=== PATIENT | female | born 1970 | race Native Hawaiian/Other Pacific Islander ===

== ENCOUNTER → 2016-03-11 | Outpatient (REF) | payer BC ==
[~2016-03-11] MED LIST: AMLO5TAB2 PO; NORC7.5T PO; PROA1AER INH
== END ==
LOC: M LAB REF 12:44
PROVIDERS: ATTEND Internal Medicine Medical Oncology
DX: C18.9 Malignant neoplasm of colon, unspecified (principal)

== ENCOUNTER → 2016-05-09 | Outpatient (CLI) | payer BC | LOC: M SMT 15:04 | PROVIDERS: ATTEND Family Medicine | DX: E55.9 Vitamin D deficiency, unspecified (principal) ==

== ENCOUNTER → 2016-05-09 | Outpatient (CLI) | payer BC ==
[2016-05-09 22:07] LABS: FREE T4 1.58 NG/DL (0.76-1.46)
== END ==
LOC: M SMT 15:02
PROVIDERS: ATTEND Physician Assistant Medical
DX: E03.9 Hypothyroidism, unspecified (principal)

== ENCOUNTER → 2016-05-21 | Outpatient (CLI) | payer BC ==
--- NOTE | 2016-05-22 08:00 | RADONC ---
RADIATION ONCOLOGY FOLLOWUP NOTE DATE: 05/21/2016 CHART NUMBER: [id number]. DIAGNOSIS: Rectosigmoid cancer. STAGE: IIIB, [id number]. ECOG PERFORMANCE STATUS: 0. FOLLOWUP NOTE: Ms. 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 The patient presents today reporting that she is doing quite well with no complaints at this time related to her radiation therapy disease. She has no urinary or bowel difficulties. No bone pain. REVIEW OF SYSTEMS: The patient's review of systems is noncontributory. Denies nausea, vomiting, fevers, chills, night sweats, diplopia, headaches, anxiety or depression, anorexia, weight loss, visual disturbances, chest pain, urinary or bowel difficulties, bone pain, or neurological problems. PHYSICAL EXAMINATION: The patient is a well-developed, well-nourished, 46-year-old white female in no acute distress. HEENT exam is normocephalic, atraumatic. Extraocular movements are intact. There is no palpable cervical, supraclavicular, infraclavicular, axillary, or inguinal lymphadenopathy present. Lungs are clear to auscultation and percussion. Heart has a regular rate and rhythm. Abdomen is benign with no hepatosplenomegaly, masses, or tenderness. Skeletal examination reveals no tenderness to pressure or percussion of the bony skeleton. Extremities reveal no clubbing, cyanosis, or edema. Neurologic exam is grossly intact, as is the remainder of the physical examination. Rectal examination reveals a normal anal sphincter tone. There is no evidence of nodularity, ulceration or recurrent disease. ASSESSMENT: The patient is clinically SAUNDRA at this time and will be seen by us again in 6 months for further followup. She will also continue to be followed by her other physicians as well. The patient tells me that she is seeing Dr. Mars in [address] Mars has ordered a PET scan for her. cc: MD Ian Felton MD *Nikole Brooke,
== END ==
LOC: M ONCR 09:59
PROVIDERS: ATTEND Radiology Radiation Oncology
DX: C21.8 Malignant neoplasm of overlapping sites of rectum, anus and anal canal (principal)

== ENCOUNTER → 2016-06-10 | Outpatient (REF) | payer BC | LOC: M LAB REF 13:26 | PROVIDERS: ATTEND Internal Medicine Medical Oncology | DX: C20 Malignant neoplasm of rectum (principal) ==

== ENCOUNTER → 2016-06-11 | Outpatient (REF) | payer BC | LOC: M SFHCPLAZ 13:30 | PROVIDERS: ATTEND Dermatology | DX: L25.9 Unspecified contact dermatitis, unspecified cause (principal) ==

== ENCOUNTER → 2016-06-18 | Outpatient (CLI) | payer BC ==
--- NOTE | 2016-06-19 09:44 | REP ---
PET/CT: HISTORY: Restaging rectal carcinoma. Rising tumor markers. The patient status post low anterior resection and chemotherapy. The patient is apparently status post radiation therapy as well. COMPARISON: Comparison PET/CT study September 13, 2015. TECHNIQUE: 53 minutes following the intravenous injection of a 11.0 mCi dose of F-18 FDG, three-dimensional PET scintigraphy is acquired from the skull base to the proximal thighs. Triplanar noncontrast CT scanning is acquired through the same anatomic range for attenuation correction, and image registration with scan parameters optimized to minimize radiation exposure to the patient. PET scintigraphy and CT datasets were fused and displayed on a workstation with multiplanar and projection display capability. PET/CT FINDINGS: Bilateral and fairly diffuse uptake in the thyroid lobes is again seen. The right thyroid lobe is larger than the left as before. Maximum standard uptake value in the right lobe is 7.7 and in the left 3.6. These findings are unchanged and most compatible with thyroiditis. Head and neck uptake is otherwise unremarkable. There is non-hypermetabolic uptake in two adjacent right axillary lymph nodes which are well under a centimeter. This is essentially unchanged as well. There is evidence of cholelithiasis again noted. Uptake in the abdomen and pelvis is unremarkable. There is no evidence of hypermetabolic focus in the abdomen or pelvis. Postoperative changes are seen status post low anterior resection. Normal appendix. IMPRESSION: No new abnormal hypermetabolic uptake. Diffuse increased uptake throughout both lobes of the thyroid gland again seen compatible with thyroiditis. Signed by Devin Augusitne MD 06/19/2016 12:39 P
== END ==
LOC: M RAD 15:24
PROVIDERS: ATTEND Internal Medicine Medical Oncology
DX: C20 Malignant neoplasm of rectum (principal); Z92.21 Personal history of antineoplastic chemotherapy; R59.1 Generalized enlarged lymph nodes
CPT/HCPCS: 78815; A9552

== ENCOUNTER 2016-07-08 06:56 | Emergency (ER) | payer BC ==
[~2016-07-08] VITALS: Ht 157.5 cm; Wt 65.8 kg
[2016-07-08] MEDS ORDERED: PREM0.6254 (07:19)
[2016-07-08] MEDS ORDERED: VITA50003 (07:19)
[2016-07-08] MEDS ORDERED: LEVO112T2 PO (07:19)
[2016-07-08] MEDS: NS 1,000 ML IV SCH ×3 (07:45→13:29)
[2016-07-08 07:52] LABS: BASO # 0.1 K/mm3 (0.0-0.2); BASO % 1.2 % (0.0-1.0); EOS # 0.3 K/mm3 (0.0-0.50); EOS % 5.5 % (0.0-3.0); LARGE UNSTAINED CELL # 0.1 K/mm3 (0.0-0.4); LARGE UNSTAINED CELL % 1.8 % (0.0-4.0); LYMPH # 1.3 K/mm3 (1.5-4.5); LYMPH % 19.9 % (24.0-44.0); MEAN CORPUSCULAR HEMOGLOBIN 30.3 pg (27.0-33.0); MEAN CORPUSCULAR HGB CONC 33.6 g/dl (32.0-36.5); MEAN CORPUSCULAR VOLUME 90.4 fl (80.0-96.0); MONO # 0.4 K/mm3 (0.0-0.8); MONO % 6.3 % (0.0-5.0); NEUTROPHILS # 3.8 K/mm3 (1.8-7.7); NEUTROPHILS % 65.2 % (36.0-66.0); PLATELET COUNT, AUTOMATED 347 k/mm3 (150-450); RED CELL DISTRIBUTION WIDTH 12.4 % (11.5-14.5); WHITE BLOOD COUNT 5.8 K/mm3 (4.0-10.0)
--- NOTE | 2016-07-08 08:14 | REP ---
Clinical: Chest pain . Comparison: 05/24/2014 . Findings: The mediastinum and cardiac silhouette are stable and within normal limits for portable technique. The lung olivera are clear without acute consolidation, effusion, or pneumothorax. Skeletal structures are intact. Impression: Normal portable chest x-ray Signed by Neftaly Spence MD 07/08/2016 08:05 A
[2016-07-08 08:15] LABS: ALBUMIN 3.7 GM/DL (3.2-5.2); ALBUMIN/GLOBULIN RATIO 0.93 (1.00-1.93); ALKALINE PHOSPHATASE 84 U/L (45-117); ALT/SGPT 28 U/L (12-78); ANION GAP 11 MEQ/L (8-16); AST/SGOT 20 U/L (15-37); BILIRUBIN,DIRECT 0.2 MG/DL (0.0-0.2); BILIRUBIN,TOTAL 0.8 MG/DL (0.2-1.0); BLOOD UREA NITROGEN 13 MG/DL (7-18); CALCIUM LEVEL 8.7 MG/DL (8.5-10.1); CARBON DIOXIDE LEVEL 24 MEQ/L (21-32); CHLORIDE LEVEL 106 MEQ/L (98-107); CREATININE FOR GFR 0.92 MG/DL (0.55-1.02); GLOMERULAR FILTRATION RATE > 60.0 (>58); GLUCOSE, FASTING 123 MG/DL (70-105); POTASSIUM SERUM 3.4 MEQ/L (3.5-5.1); SODIUM LEVEL 141 MEQ/L (136-145); TOTAL PROTEIN 7.7 GM/DL (6.4-8.2)
[2016-07-08] MEDS ORDERED: MORPHINE 4 MG/ML 1ML SYRINGE IV ONE ×2 (08:30→10:45)
[2016-07-08] MEDS ORDERED: ONDANSETRON 4MG/2ML VIAL (J2405) IV ONE (08:30)
[2016-07-08] MEDS ORDERED: ISOVUE-370 76% 100ML VIAL (Q9967) As Ordered ONE (11:11)
--- NOTE | 2016-07-08 11:59 | REP ---
CT ANGIOGRAM CHEST: TECHNIQUE: Axial contrast enhanced images from the thoracic inlet to the upper abdomen using 100 mL Isovue 370 intravenous contrast material with multiplanar reformations. The lungs show no evidence of infiltrate or other abnormal lung opacities. There is no CT evidence of pulmonary embolism. There is no evidence of thoracic aortic aneurysm or dissection. No adenopathy is seen in the mediastinal or hilar regions. The heart is normal in size. There is no pleural or pericardial effusion. The visualized upper abdominal structures appear unremarkable. IMPRESSION: No CT evidence of pulmonary embolism. Signed by Nixon Verma MD 07/08/2016 04:08 P
[2016-07-08] MEDS ORDERED: HEPARIN DRIP 25,000 UNITS in APPROPRIATE DILUENT 1 EA IV SCH (12:08)
[2016-07-08] MEDS ORDERED: HEPARIN SOD (PORCINE) 5000 UNITS/ML VIAL IV ONE (12:15)
[2016-07-08 13:12] VITALS: BP 168/92
--- NOTE | 2016-07-08 15:09 | ECGEPIP ---
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
--- NOTE | 2016-07-08 15:13 | ECGEPIP ---
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
== END 2016-07-08 13:29 | disposition short-term general hospital (02) ==
LOC: M ED 08:15
DX: R07.9 Chest pain, unspecified (principal); R74.8 Abnormal levels of other serum enzymes; Z85.038 Personal history of other malignant neoplasm of large intestine
CPT/HCPCS: 71010; 71275; 80048; 80076; 82550; 82553; 83690; 83880; 85025; 85379; 93005; 93041; 94760; 96374; 96375; 96376; 99285; J2405; Q9967

== ENCOUNTER → 2016-07-16 | Outpatient (CLI) | payer BC ==
[~2016-07-16] MED LIST changes: +LEVO112T2 PO; +PREM0.6254; +VITA50003
[2016-07-16 17:56] LABS: ALBUMIN 4.5 GM/DL (3.2-5.2); ALBUMIN/GLOBULIN RATIO 1.05 (1.00-1.93); ALKALINE PHOSPHATASE 98 U/L (45-117); ALT/SGPT 34 U/L (12-78); ANION GAP 10 MEQ/L (8-16); AST/SGOT 16 U/L (15-37); BILIRUBIN,TOTAL 1.7 MG/DL (0.2-1.0); BLOOD UREA NITROGEN 20 MG/DL (7-18); CALCIUM LEVEL 9.6 MG/DL (8.5-10.1); CARBON DIOXIDE LEVEL 23 MEQ/L (21-32); CHLORIDE LEVEL 108 MEQ/L (98-107); CREATININE FOR GFR 1.06 MG/DL (0.55-1.02); GLUCOSE, FASTING 93 MG/DL (70-105); POTASSIUM SERUM 4.9 MEQ/L (3.5-5.1); SODIUM LEVEL 141 MEQ/L (136-145); TOTAL PROTEIN 8.8 GM/DL (6.4-8.2)
[2016-07-16 18:08] LABS: MEAN CORPUSCULAR HEMOGLOBIN 31.3 pg (27.0-33.0); MEAN CORPUSCULAR HGB CONC 32.5 g/dl (32.0-36.5); MEAN CORPUSCULAR VOLUME 96.1 fl (80.0-96.0); PLATELET COUNT, AUTOMATED 424 k/mm3 (150-450); RED CELL DISTRIBUTION WIDTH 12.4 % (11.5-14.5); WHITE BLOOD COUNT 11.3 K/mm3 (4.0-10.0)
[2016-07-16 20:28] LABS: ERYTHROCYTE SEDIMENTATION RATE 3 mm/hr (0-20)
[2016-07-16 22:07] LABS: BANDS 1 % (< 11); BASOPHILS 1 % (0-4); EOSINOPHILS 2 % (0-5); PLATELET CLUMPS SMALL AMT
[2016-07-19 00:07] LABS: H PYLORI SERUM QUANT IgG ABY <0.9 U/mL (0.0-0.8); TISSUE TRANSGLUTAMINASE IgG <2 U/mL (0-5)
== END ==
LOC: M SMT 13:46
PROVIDERS: ATTEND Family Medicine
DX: R19.7 Diarrhea, unspecified (principal); E03.9 Hypothyroidism, unspecified

== ENCOUNTER → 2016-07-16 | Outpatient (CLI) | payer BC ==
[2016-07-16 18:11] LABS: FREE T4 1.34 NG/DL (0.76-1.46)
== END ==
LOC: M SMT 13:50
PROVIDERS: ATTEND Physician Assistant Medical
DX: E03.9 Hypothyroidism, unspecified (principal)

== ENCOUNTER 2016-08-04 08:16 | Observation (INO) | payer BC ==
[~2016-08-04] VITALS: Ht 157.5 cm; Wt 70.2 kg
[2016-08-04] MEDS ORDERED: PREM0.452 PO (08:39)
[2016-08-04] MEDS ORDERED: VITA200028 PO (08:39)
[2016-08-04] MEDS ORDERED: PLAV75TA38 PO (08:39)
[2016-08-04] MEDS ORDERED: ATOR40TA PO (08:39)
[2016-08-04] MEDS ORDERED: LEVO75TA4 PO (08:39)
[2016-08-04] MEDS ORDERED: BISO10TA PO (08:39)
[2016-08-04 09:06] LABS: BASO % 0.9 % (0.0-1.0); EOS # 0.4 K/mm3 (0.0-0.50); EOS % 7.3 % (0.0-3.0); LARGE UNSTAINED CELL # 0.1 K/mm3 (0.0-0.4); LARGE UNSTAINED CELL % 2.3 % (0.0-4.0); LYMPH # 1.4 K/mm3 (1.5-4.5); LYMPH % 24.5 % (24.0-44.0); MEAN CORPUSCULAR HEMOGLOBIN 30.5 pg (27.0-33.0); MEAN CORPUSCULAR HGB CONC 33.4 g/dl (32.0-36.5); MEAN CORPUSCULAR VOLUME 91.1 fl (80.0-96.0); MONO # 0.3 K/mm3 (0.0-0.8); MONO % 6.1 % (0.0-5.0); NEUTROPHILS # 3.2 K/mm3 (1.8-7.7); PLATELET COUNT, AUTOMATED 313 k/mm3 (150-450); RED CELL DISTRIBUTION WIDTH 12.2 % (11.5-14.5); WHITE BLOOD COUNT 5.4 K/mm3 (4.0-10.0)
--- NOTE | 2016-08-04 09:12 | REP ---
Chest x-ray: Two views. History: Chest pain . Comparison study: July 08, 2016 . Findings: The lungs are well inflated and free of infiltrate. The pleural angles are sharp. The heart size is normal. Pulmonary vasculature is not increased. No significant bony abnormality is seen. EKG monitoring electrodes overlie the chest. Impression: Negative chest x-ray. Signed by Devin Augustine MD 08/04/2016 09:04 A
[2016-08-04] MEDS ORDERED: CLOPIDOGREL 300 MG TAB (PLAVIX) PO ONE (09:15)
[2016-08-04 09:27] LABS: ANION GAP 7 MEQ/L (8-16); BLOOD UREA NITROGEN 14 MG/DL (7-18); CALCIUM LEVEL 8.8 MG/DL (8.5-10.1); CARBON DIOXIDE LEVEL 25 MEQ/L (21-32); CHLORIDE LEVEL 109 MEQ/L (98-107); GLOMERULAR FILTRATION RATE > 60.0 (>58); GLUCOSE, FASTING 126 MG/DL (70-105); SODIUM LEVEL 141 MEQ/L (136-145)
[2016-08-04] MEDS ORDERED: SYNT100T PO (14:07)
[2016-08-04] MEDS ORDERED: VITA50003 PO (14:07)
--- NOTE | 2016-08-04 15:06 | HPEPDOC ---
Medical History and Physical Date of Admission Aug 04, 2016 at 13:08 History and Physical HISTORY AND PHYSICAL Date of admission: 08/04/2016 PCP: Dr. Nikole Molina Chief complaint: Chest pain HPI: 46-year-old female with Jacklyn's, hypertension, eczema, history of colon /rectal cancer status post partial colon resection/radiation/chemotherapy, radiation induced neuropathy, G6PD deficiency, CAD with a recent NSTEMI and balloon angiography who presented to the emergency department with chest pain. She states that at approximately 10:30 PM last night, she began experiencing some pain in her left axilla, but she was able to go to sleep without much difficulty. This morning, she noticed that it was radiating into her arm and she was also experiencing some pressure in her chest. She states that it comes and goes and seems to do so on its own. She denies any associated nausea, vomiting, shortness of breath. She is unable to identify anything that seems to make it better or worse. She recently experienced an NSTEMI on July 07, and underwent balloon angiography of the PDA at [facility]. She states that since then, she has had some difficulty with feeling more tired than usual, and she also reports 2 episodes of very watery profuse diarrhea. She states that since her colon resection, it is not uncommon for her to experience alternating diarrhea and constipation, but since her balloon angiography, she has had 2 instances where she wakes up in the middle of the night with profuse watery diarrhea that lasts for almost 24 hours and then appears to resolve on its own. She has been seen by her PCP who checked her for C. difficile, and everything appeared normal. Past medical history: Jacklyn's, hypertension, eczema, history of colon/ rectal cancer status post partial colon resection/radiation/chemotherapy, radiation induced neuropathy, G6PD deficiency, CAD with a recent NSTEMI and balloon angiography Past surgical history: Partial colon resection, lithotripsy, balloon angiography Family history: Diabetes mellitus, hypertension, CVA Social history: The patient has never smoked tobacco, she does not drink any alcohol or use drugs. 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 Allergies: Amoxicillin, aspirin, pineapple, sulfa antibiotics Review of systems: General: Positive for subjective fever and chills Eyes:. Negative for vision changes and ocular discharge ENT: Positive for sore throat, negative for nosebleeds Cardiovascular: Positive for chest pain, negative for palpitations Respiratory: Positive for cough, negative for shortness of breath GI: Negative for nausea and vomiting. Positive for alternating diarrhea and constipation. Musculoskeletal: Positive for back pain, negative for neck pain. Skin: Negative for rash Neuro: Negative for headache. Positive for dizziness. Positive for chronic numbness and tingling of her hands and feet secondary to neuropathy. Psych: Negative for depression and suicidal ideation. Endocrine: Negative for polyuria : Negative for dysuria Heme: Negative for bleeding Home meds: See below Physical exam: Vital signs: Vital Sign - Last 24 Hours 08/04/16 08/04/16 08/04/16 08/04/16 09:42 09:46 09:57 10:01 Pulse 56 58 B/P (MAP) 105/58 (74) 107/60 (76) Pulse Ox 98 97 08/04/16 08/04/16 08/04/16 08/04/16 10:12 10:16 10:27 10:31 Pulse 58 58 B/P (MAP) 101/59 (73) 104/64 (77) Pulse Ox 97 96 08/04/16 08/04/16 08/04/16 08/04/16 10:42 10:46 10:57 11:01 Pulse 60 54 B/P (MAP) 113/61 (78) 129/70 (89) Pulse Ox 96 99 08/04/16 08/04/16 08/04/16 08/04/16 11:16 11:27 11:31 11:42 Pulse 58 58 B/P (MAP) 112/73 (86) 113/58 (76) Pulse Ox 95 96 08/04/16 08/04/16 08/04/16 08/04/16 11:46 11:57 12:01 12:16 Pulse 58 58 60 B/P (MAP) 120/60 (80) Pulse Ox 96 96 97 08/04/16 08/04/16 08/04/16 08/04/16 12:27 12:31 12:42 12:46 Pulse 60 60 B/P (MAP) 114/68 (83) 111/58 (75) Pulse Ox 96 97 08/04/16 08/04/16 08/04/16 08/04/16 13:01 13:02 13:12 13:16 Pulse 60 68 B/P (MAP) 97/63 (74) 103/67 (79) Pulse Ox 96 96 08/04/16 08/04/16 08/04/16 08/04/16 13:27 13:31 13:42 13:46 Pulse 68 64 B/P (MAP) 104/65 (78) 106/55 (72) Pulse Ox 96 96 08/04/16 08/04/16 08/04/16 08/04/16 13:57 14:01 14:12 14:16 Pulse 78 68 B/P (MAP) 108/55 (72) 101/55 (70) Pulse Ox 95 95 08/04/16 14:19 Temp 99.2 Pulse 72 Resp 20 B/P (MAP) 101/55 (70) Pulse Ox 96 O2 Delivery Room Air Gen.: awake, alert, no acute distress Eyes: Extraocular movements intact, normal sclera ENT: Moist mucous membranes Cardiovascular: RRR, no murmurs rubs or gallops; CP not reproducible with palpation Lungs: clear to auscultation bilaterally, no rales, rhonchi, or wheeze Abdomen: Soft, NT/ND, normal BS Musculoskeletal: normal range of motion Extremities: No peripheral edema Neuro: alert and oriented 3, normal speech, no focal deficits Psych: Normal mood with congruent affect Labs and radiology: See below CBC, BMP, d-dimer, troponin 2 are unremarkable Chest x-ray is negative for acute disease EKG shows normal sinus rhythm with no evidence of ischemia or infarct Assessment and plan: 46-year-old female with Jacklyn's, hypertension, eczema, history of colon/ rectal cancer status post partial colon resection/radiation/chemotherapy, radiation induced neuropathy, G6PD deficiency, CAD with a recent NSTEMI and balloon angiography who presented to the emergency department with chest pain. 1. Chest pain with history of CAD and recent NSTEMI/balloon angiogrpahy: The patient does have significant risk factors for ACS, but her EKG and troponins 2 were unremarkable. We'll monitor her on telemetry and continue to trend her troponins. I have spoken with her project management director Dr. Zuniga, and he has agreed to come see her in consultation. We'll continue her on her home statin, beta ashley, and Plavix. Given her G6PD deficiency and allergy to aspirin, we will not be starting aspirin. 2. Jacklyn's: Continue home Synthroid. 3. Hypertension: Continue home beta ashley DVT prophylaxis: SCDs Dispo: place in observation on the service of Dr. Barger CODE STATUS: Full Code Vital Signs Vital Signs Date Time Temp Pulse Resp B/P (MAP) Pulse Ox O2 Delivery O2 Flow Rate FiO2 08/04/16 14:19 99.2 72 20 101/55 (70) 96 Room Air Laboratory Data Labs 24H Laboratory Tests 2 08/04/16 08:40: White Blood Count 5.4, Red Blood Count 4.08, Hemoglobin 12.4, Hematocrit 37.2, Mean Corpuscular Volume 91.1, Mean Corpuscular Hemoglobin 30.5, Mean Corpuscular Hemoglobin Concent 33.4, Red Cell Distribution Width 12.2, Platelet Count 313, Neutrophils (%) (Auto) 59.0, Lymphocytes (%) (Auto) 24.5, Monocytes ( %) (Auto) 6.1H, Eosinophils (%) (Auto) 7.3H, Basophils (%) (Auto) 0.9, Neutrophils # (Auto) 3.2, Lymphocytes # (Auto) 1.4L, Monocytes # (Auto) 0.3, Eosinophils # (Auto) 0.4, Basophils # (Auto) 0.0, Large Unclassified Cells % 2.3 , Large Unclassified Cells # 0.1, D-Dimer, Quantitative 391.2, Anion Gap 7L, Glomerular Filtration Rate > 60.0, Blood Urea Nitrogen 14, Creatinine 0.90, Sodium Level 141, Potassium Level 4.0, Chloride Level 109H, Carbon Dioxide Level 25, Calcium Level 8.8, Total Creatine Kinase 137, Creatine Kinase MB 1.0, Creatine Kinase MB Relative Index 0.72, Troponin I < 0.02 08/04/16 12:00: Total Creatine Kinase 130, Creatine Kinase MB 1.0, Creatine Kinase MB Relative Index 0.76, Troponin I < 0.02 CBC/BMP Laboratory Tests 08/04/16 08:40 Red Blood Count 4.08, Mean Corpuscular Volume 91.1, Mean Corpuscular Hemoglobin 30.5, Mean Corpuscular Hemoglobin Concent 33.4, Red Cell Distribution Width 12.2 , Neutrophils (%) (Auto) 59.0, Lymphocytes (%) (Auto) 24.5, Monocytes (%) (Auto ) 6.1 H, Eosinophils (%) (Auto) 7.3 H, Basophils (%) (Auto) 0.9, Neutrophils # ( Auto) 3.2, Lymphocytes # (Auto) 1.4 L, Monocytes # (Auto) 0.3, Eosinophils # ( Auto) 0.4, Basophils # (Auto) 0.0, Calcium Level 8.8, Total Creatine Kinase 137 Home Medications Scheduled (Prempro 0.45-1.5 mg) 1 Tab Tab, 1 TAB PO DAILY Atorvastatin Calcium (Atorvastatin Calcium) 40 Mg Tab, 40 MG PO DAILY Bisoprolol Fumarate (Zebeta) 10 Mg Tab, 5 MG PO DAILY Clopidogrel Bisulfate (Plavix) 75 Mg Tab, 75 MG PO QHS Ergocalciferol (Vitamin D) 50,000 Unit Cap, 50,000 UNIT PO ASDIRECTED Weekly - Thursday Levothyroxine Sodium (Synthroid) 100 Mcg Tab, 100 MCG PO QAM Allergies Coded Allergies: Amoxicillin (Verified Allergy, Unknown, 10/25/14) Aspirin (Verified Allergy, Unknown, 10/25/14) Pineapple (Verified Allergy, Unknown, 10/25/14) Sulfa Antibiotics (Verified Allergy, Unknown, 10/25/14) CORKY PENALOZA Aug 04, 2016 15:06
[2016-08-04 16:00] VITALS: BP 108/62
[2016-08-04 19:54] VITALS: BP 115/58
--- NOTE | 2016-08-04 20:21 | CR ---
DATE OF CONSULTATION: 08/04/2016 INDICATION: Chest pain. HISTORY OF PRESENT ILLNESS: Mrs. Pruitt is known to me. She is a very pleasant 46-year-old [place] female who presented initially on 07/18/2016 with chest discomfort associated with mild troponin elevation and nonspecific ST-T abnormalities. She was transferred for coronary angiogram that revealed subtotal occlusion of small posterior descending artery (PDA) and there was moderate disease in ostial left anterior descending (LAD). She received plain old balloon angioplasty to PDA because the vessel was too small for stenting. Because there was concern about the disease and LAD she following day underwent another procedure with intravascular ultrasound and flow wire. Both techniques revealed no evidence for hemodynamic significance of LAD lesion. She was discharged home on standard medication but without aspirin and only on Plavix. There is a concern about using aspirin as the patient has a history of G6PD deficiency. She was doing well and actually was exercising, had no trouble doing so until yesterday. She in the evening hours started having discomfort in her left armpit that had some radiation toward her left shoulder and left upper extremity. It was present on and off throughout the night but this morning got more severe and she came to emergency room for further evaluation. Initial ECG revealed no evidence for ischemia and her cardiac enzymes were negative. They remained negative after two additional tests but she continued to have discomfort. I was contacted from emergency room and spoke also with Dr. Comer who reviewed her angiogram. Even though it is conceivable that she may have already restenosed the side in PDA it is unlikely that the site can be protected in the long run because the vessel is just too small. The recommendation was to keep the patient in the hospital to formally rule out myocardial infarction. Provided there is no evolution on ECG and her cardiac enzyme will remain negative, she tentatively will be discharged home for outpatient nuclear stress test. At the time of my dictation, the patient still has some residual discomfort that has been waxing and waning during the day. She denies any relationship to activity or position. There is mild associated dyspnea. PAST MEDICAL HISTORY: 1. Coronary artery disease as above. During her angiogram she had preserved left ventricular systolic function. 2. History of rectal carcinoma in 2014. She underwent resection, radiation and chemotherapy. 3. Hypothyroidism. 4. History of G6PD deficiency. Per communication with Dr. Comer from [facility], the tests confirm that she has G6PD deficiency. SURGICAL HISTORY: Positive for resection of rectal carcinoma in 2015. OUTPATIENT MEDICATIONS: Lipitor 40 mg a day, bisoprolol 5 mg a day, clopidogrel 75 a day, levothyroxine 100 mcg a day, Prempro 0.625/5 mg a day, and vitamin D 5000 units once a week. FAMILY HISTORY: Brother has a history of leukemia. Father and mother were both diabetics. 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 REVIEW OF SYSTEMS: There is no recent fever, chills, nausea, vomiting and diarrhea. Denies headache. Denies any prior history of heart disease until a month ago. Denies palpitations. She was feeling well until yesterday. Denies abdominal pain, nausea, vomiting or diarrhea. No peripheral edema. No syncopal events. She has been feeling quite tired since she has been on medications and reports occasional dizziness. PHYSICAL EXAMINATION: Mrs. Pruitt is a pleasant middle-aged female. She appears to be in no distress, very pleasant. Blood pressure 108/62, heart rate has been running mostly in 60s and low 70s. She is afebrile. Saturation is 94% on room air. She is alert and oriented and appropriate. Her jugular venous pressure (JVP) is not up. No carotid bruit. Lungs are clear to auscultation. Heart exam regular rhythm. No gallop, rub or murmur. Abdomen is soft, nontender. No peripheral edema and good peripheral pulses. No skin lesions. Neurologically she is intact. LABORATORY DATA: Basic metabolic panel is normal but for glucose 126. Three sets of cardiac enzymes are negative including CK and CK-MB and her CBC is normal. D-dimer was negative. Chest x-ray revealed a normal study. ECG reveals sinus rhythm without ST-T abnormalities suggestive of ischemia. ASSESSMENT/PLAN: As per history of present illness Mrs. Pruitt is a pleasant 46-year-old female who has a history of POBA to very small PDA on 07/18/2016 after presentation with non-STEMI. There was residual moderate disease in LAD. She now presents with recurrence of chest discomfort that albeit atypical resembles her symptoms she had with her original presentation. At this point there is no objective evidence for ischemia or myocardial necrosis. Plan is to continue current management. She unfortunately cannot safely receive aspirin so will continue Plavix. I am not planning to administer Lovenox as we have no definite evidence that this is truly ischemic in nature. I would continue her beta ashley and statin. Tentatively there will be plan to discharge the patient home provided evaluation remains negative and I will, after consultation with Nahomi plan on performing nuclear stress test. There remains to be concern about LAD lesion in spite of both IVUS and FFR being negative during her catheterization on 07/18/2016. I discussed the situation with the patient and her extensively. RIZWAN
--- NOTE | 2016-08-04 21:59 | ECGEPIP ---
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
[2016-08-04 23:40] VITALS: BP 117/60
[2016-08-05] MEDS ORDERED: SLF 3 ML SYR IV PRN (00:30)
[2016-08-05 04:15] VITALS: BP 102/53
[2016-08-05] MEDS ORDERED: LEVOTHYROXINE 0.1 MG TAB (100 MCG) PO SCH (06:00)
[2016-08-05] MEDS ORDERED: SLF 3 ML SYR IV SCH (06:00)
[2016-08-05 06:23] LABS: BASO % 0.8 % (0.0-1.0); EOS # 0.4 K/mm3 (0.0-0.50); EOS % 8.3 % (0.0-3.0); LARGE UNSTAINED CELL # 0.1 K/mm3 (0.0-0.4); LARGE UNSTAINED CELL % 1.9 % (0.0-4.0); LYMPH # 1.3 K/mm3 (1.5-4.5); MEAN CORPUSCULAR HEMOGLOBIN 30.8 pg (27.0-33.0); MEAN CORPUSCULAR HGB CONC 33.5 g/dl (32.0-36.5); MEAN CORPUSCULAR VOLUME 91.9 fl (80.0-96.0); MONO # 0.3 K/mm3 (0.0-0.8); MONO % 6.1 % (0.0-5.0); NEUTROPHILS # 3.2 K/mm3 (1.8-7.7); NEUTROPHILS % 60.9 % (36.0-66.0); PLATELET COUNT, AUTOMATED 311 k/mm3 (150-450); RED CELL DISTRIBUTION WIDTH 12.3 % (11.5-14.5); WHITE BLOOD COUNT 5.3 K/mm3 (4.0-10.0)
[2016-08-05 06:40] LABS: ANION GAP 6 MEQ/L (8-16); BLOOD UREA NITROGEN 13 MG/DL (7-18); CALCIUM LEVEL 8.5 MG/DL (8.5-10.1); CARBON DIOXIDE LEVEL 25 MEQ/L (21-32); CHLORIDE LEVEL 109 MEQ/L (98-107); CREATININE FOR GFR 0.91 MG/DL (0.55-1.02); GLOMERULAR FILTRATION RATE > 60.0 (>58); GLUCOSE, FASTING 121 MG/DL (70-105); MAGNESIUM LEVEL 1.8 MG/DL (1.8-2.4); POTASSIUM SERUM 3.9 MEQ/L (3.5-5.1); SODIUM LEVEL 140 MEQ/L (136-145)
--- NOTE | 2016-08-05 07:55 | ECGEPIP ---
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
[2016-08-05 08:00] VITALS: BP 135/70
--- NOTE | 2016-08-05 08:04 | ECGEPIP ---
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
[2016-08-05 08:16] VITALS: BP 135/70
[2016-08-05] MEDS ORDERED: VITAMIN D 50,000 UNITS CAPSULE (ERGOCALCIFEROL 1.25MG) PO SCH (09:00)
[2016-08-05] MEDS ORDERED: BISOPROLOL FUMARATE 5 MG TAB PO SCH (09:00)
[2016-08-05] MEDS ORDERED: ATORVASTATIN 20 MG TAB PO SCH (09:00)
--- NOTE | 2016-08-05 09:04 | IPN ---
DATE OF SERVICE: 08/05/2016 Mrs. Pruitt had a relatively uneventful night. She still had occasional mild discomfort but feels good this morning. Has no other complaints. Blood pressure 102/53, heart rate is in 60s to low 80s. She is afebrile. Saturation 96% on room air. Fluid balance yesterday was equal 70 kg. Jugular venous pressure (JVP) is not up. Lungs are clear with good air movement. Heart examination reveals regular rhythm. I do not appreciate any gallop, rub, or murmur. Abdomen is soft, nontender. No peripheral edema. Neurologically, she is intact. Basic metabolic panel is normal but for glucose 121. CBC is normal. The cardiac enzymes remain negative, including CK and CK-MB. Electrocardiogram (ECG) this morning reveals sinus rhythm. There are some minimal ST-T elevations in lead #3, which is unchanged from admission. There is certainly no evolution. ASSESSMENT AND PLAN: Mrs. Pruitt is a 46-year-old female who has a history of plain old balloon angioplasty to posterior descending artery (PDA) on 07/18/2016 after presentation with [id number] myocardial infarction (non-STEMI). She came with chest discomfort that resembled the initial event, but there is no ECG or laboratory evidence for ischemia or necrosis. I spoke with Dr. Comer who did her angiogram in [facility], and he is concerned about severity of disease that she had in proximal LAD. IVUS and flow wire evaluation were negative to demonstrate ischemia,but he still recommended that we pursue nuclear stress test that I will arrange for later this week. I will try to arrange it for tomorrow, but if the insurance approval will not be quick enough, we probably will not. Will likely end up doing the procedure on Thursday. RIZWAN
--- NOTE | 2016-08-05 11:25 | IPNPDOC ---
Subjective Date Seen The patient was seen on 08/05/16. Subjective Chief Complaint/HPI The patient is a 46-year-old female admitted with a reason for visit of Chest Pain. Events since last encounter Feeling comfortable, slept last evening- has some pain in left axillae Constitutional: Denies: Chills, Fever Pulmonary: Denies: Dyspnea, Cough Cardiovascular: Reports: Chest Pain, Denies: Palpitations Gastrointestinal: Denies: Nausea, Vomiting, Abdominal Pain Objective Physical Examination General Exam: Positive: Alert, Cooperative, No Acute Distress Eye Exam: Negative: Sclera icteric ENT Exam: Positive: Mucous membr. moist/pink Chest Exam: Positive: Clear to auscultation, Negative: Rales, Rhonchi, Wheezing Heart Exam: Positive: Rate Normal, Normal S1, Normal S2 Telemetry: Positive: No significant arrhythmia Abdomen Exam: Positive: Normal bowel sounds, Soft, Negative: Tenderness Extremity Exam: Negative: Edema Assessment /Plan Problems (1) CAD (coronary artery disease) Status: Acute Problem Specific Plan: Consult Specialist Problem Text: Seen by Dr. Zuniga. Known CAD, which is not known to be symptomatic Plan for outpt stress test continue to monitor on telemetry Not on ASA due to G^PD deficiency (2) HTN (hypertension) Status: Chronic Problem Text: zebeta (3) G6PD deficiency Status: Chronic Problem Text: avoiding asa (4) Rectal cancer Status: Chronic Problem Text: s/p chemo and radiation Plan/VTE VTE Prophylaxis Ordered?: Yes (mechanical) VS, I&O, 24H, Fishbone Vital Signs/I&O Vital Signs Date Time Temp Pulse Resp B/P (MAP) Pulse Ox O2 Delivery O2 Flow Rate FiO2 08/05/16 08:16 84 135/70 08/05/16 08:00 98.0 18 97 Room Air I&O- Last 24 Hours up to 6 AM 08/05/16 06:00 Intake Total 480 ml Output Total 450 ml Balance 30 ml Laboratory Data 24H LABS Laboratory Tests 2 08/04/16 12:00: Total Creatine Kinase 130, Creatine Kinase MB 1.0, Creatine Kinase MB Relative Index 0.76, Troponin I < 0.02 08/04/16 18:22: Total Creatine Kinase 129, Creatine Kinase MB 1.0, Creatine Kinase MB Relative Index 0.77, Troponin I < 0.02 08/05/16 06:02: Total Creatine Kinase 110, Creatine Kinase MB 1.0, Creatine Kinase MB Relative Index 0.90, Troponin I < 0.02, White Blood Count 5.3, Red Blood Count 4.00, Hemoglobin 12.3, Hematocrit 36.8, Mean Corpuscular Volume 91.9, Mean Corpuscular Hemoglobin 30.8, Mean Corpuscular Hemoglobin Concent 33.5, Red Cell Distribution Width 12.3, Platelet Count 311, Neutrophils (%) (Auto) 60.9, Lymphocytes (%) (Auto) 22.0L, Monocytes (%) (Auto) 6.1H, Eosinophils (%) (Auto) 8.3H, Basophils (%) (Auto) 0.8, Neutrophils # (Auto) 3.2, Lymphocytes # (Auto) 1.3L, Monocytes # (Auto) 0.3, Eosinophils # (Auto) 0.4, Basophils # (Auto) 0.0, Large Unclassified Cells % 1.9, Large Unclassified Cells # 0.1, Anion Gap 6L, Glomerular Filtration Rate > 60.0, Blood Urea Nitrogen 13, Creatinine 0.91, Sodium Level 140, Potassium Level 3.9, Chloride Level 109H, Carbon Dioxide Level 25, Calcium Level 8.5, Magnesium Level 1.8 CBC/BMP Laboratory Tests 08/05/16 06:02 Red Blood Count 4.00, Mean Corpuscular Volume 91.9, Mean Corpuscular Hemoglobin 30.8, Mean Corpuscular Hemoglobin Concent 33.5, Red Cell Distribution Width 12.3 , Neutrophils (%) (Auto) 60.9, Lymphocytes (%) (Auto) 22.0 L, Monocytes (%) ( Auto) 6.1 H, Eosinophils (%) (Auto) 8.3 H, Basophils (%) (Auto) 0.8, Neutrophils # (Auto) 3.2, Lymphocytes # (Auto) 1.3 L, Monocytes # (Auto) 0.3, Eosinophils # (Auto) 0.4, Basophils # (Auto) 0.0, Calcium Level 8.5, Total Creatine Kinase 110 SHERRI ALONZO MD Aug 05, 2016 11:25
[2016-08-05 12:00] VITALS: BP 116/64
--- NOTE | 2016-08-05 12:24 | ECGEPIP ---
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
[2016-08-05] MEDS ORDERED: CLOPIDOGREL 75 MG TAB PO SCH (21:00)
== END 2016-08-05 13:37 | disposition home or self-care (01) ==
LOC: M ED 09:18 → M ED INP 13:08 → M PCU 15:28
PROVIDERS: ADMIT Hospitalist; ATTEND Internal Medicine
DX: R07.9 Chest pain, unspecified (principal); I25.10 Atherosclerotic heart disease of native coronary artery without angina pectoris; I10 Essential (primary) hypertension; D55.0 Anemia due to glucose-6-phosphate dehydrogenase [G6PD] deficiency; E06.3 Autoimmune thyroiditis; Z79.899 Other long term (current) drug therapy; Z85.038 Personal history of other malignant neoplasm of large intestine; Z92.3 Personal history of irradiation; Z92.21 Personal history of antineoplastic chemotherapy; Z88.0 Allergy status to penicillin; Z88.2 Allergy status to sulfonamides

== ENCOUNTER → 2016-10-03 | Outpatient (REF) | payer BC ==
[~2016-10-03] MED LIST changes: +ATOR40TA75 PO; +BISO10TA PO; +LEVO75TA4 PO; -NORC7.5T PO; +NORC7.5T35 PO; +PLAV1TAB2 PO; +PREM0.452 PO; -PROA1AER INH; +PROAAER10 INH; +SYNT100T PO; +VITA1CAP40; +VITA1CAP40 PO; +VITA200028 PO; -VITA50003
== END ==
LOC: M LAB REF 13:44
PROVIDERS: ATTEND Internal Medicine Medical Oncology
DX: C20 Malignant neoplasm of rectum (principal)

== ENCOUNTER 2017-02-13 03:07 | Emergency (ER) | payer BC ==
[~2017-02-13] VITALS: Ht 160 cm; Wt 68.2 kg
[2017-02-13 03:52] LABS: BASO # 0.1 10^3/uL (0.0-0.2); BASO % 0.7 % (0.0-1.0); EOS # 0.4 10^3/uL (0.0-0.50); EOS % 5.3 % (0.0-3.0); IMMATURE GRANULOCYTE % 0.6 % (0-0); LYMPH # 1.9 10^3/uL (1.5-4.5); LYMPH % 22.3 % (24.0-44.0); MEAN CORPUSCULAR HGB CONC 33.3 g/dl (32.0-36.5); MEAN CORPUSCULAR VOLUME 90.1 fl (80.0-96.0); MONO # 0.8 10^3/uL (0.0-0.8); MONO % 9.7 % (0.0-5.0); NEUTROPHILS # 5.1 10^3/uL (1.8-7.7); NEUTROPHILS % 61.4 % (36.0-66.0); PLATELET COUNT, AUTOMATED 363 10^3/uL (150-450); RED CELL DISTRIBUTION WIDTH 11.8 % (11.5-14.5); WHITE BLOOD COUNT 8.3 10^3/uL (4.0-10.0)
[2017-02-13] MEDS: NITROGLYCERIN 0.4 MG SUBL TABLET SL PRN ×4 (03:52→09:57)
[2017-02-13 04:05] LABS: ANION GAP 10 MEQ/L (8-16); BLOOD UREA NITROGEN 12 MG/DL (7-18); CALCIUM LEVEL 9.1 MG/DL (8.5-10.1); CARBON DIOXIDE LEVEL 29 MEQ/L (21-32); CHLORIDE LEVEL 103 MEQ/L (98-107); CREATININE FOR GFR 0.88 MG/DL (0.55-1.02); GLOMERULAR FILTRATION RATE > 60.0 (>58); GLUCOSE, FASTING 123 MG/DL (70-105); POTASSIUM SERUM 3.3 MEQ/L (3.5-5.1); SODIUM LEVEL 142 MEQ/L (136-145)
--- NOTE | 2017-02-13 05:54 | ECGEPIP ---
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
[2017-02-13] MEDS ORDERED: ONDANSETRON 4MG/2ML VIAL (J2405) IV ONE (06:00)
[2017-02-13] MEDS ORDERED: MORPHINE 4 MG/ML 1ML SYRINGE IV PRN (06:00)
--- NOTE | 2017-02-13 07:49 | REP ---
PA and lateral chest: Comparison is 08/04/2016. The lung olivera are clear. The cardiac size is normal The shiraz, mediastinum, and bony thorax are unremarkable. Impression: Negative PA and lateral chest. There is no interval change. No Signed by Nixon Ralph MD 02/13/2017 07:41 A
[2017-02-13] MEDS ORDERED: CLOPIDOGREL 75 MG TAB PO ONE (08:15)
--- NOTE | 2017-02-13 08:27 | ER ---
DATE OF CONSULTATION: 02/13/2017 Mrs. Pruitt came to the emergency room yesterday night complaining about chest discomfort. It is a pressure-like sensation which has occasionally sharp streaks that is localized to her left arm pit, left upper chest and to a lesser degree also to central chest. It has been present on and off for many months, but got much worse in the last approximately two weeks and then in the last couple of days when it was becoming fairly persistent at times, she decided to come to the emergency room. The initial ECG did not reveal any ST segment shift and her cardiac enzymes have been negative times two. She then had EKG followup a few hours later, again, being completely normal without ST-T abnormalities. She received sublingual nitroglycerin initially that brought a small amount of relief, but eventually received morphine and now she feels a little dizzy, but the pain is minimal. She reported that she has had similar discomfort for at least a couple of weeks and increased intensity. It occurs without any obvious trigger and usually lasts hours at a time. She does not believe that there is a relationship to position, stress or activity. The patient does have established coronary artery disease. She underwent a plain old balloon angioplasty to PDA in June 2016 after presentation with unstable angina/NSTEMI. She had borderline disease in the proximal LAD and underwent IVUS and later on also nuclear stress testing that were unremarkable. PAST MEDICAL HISTORY: 1. Coronary artery disease as above. 2. There is history of G6PD deficiency. 3. Dyslipidemia. 4. History of rectal cancer diagnosed in 2014. She is status post anterior resection of rectum with radiation and chemotherapy. 5. Hypothyroidism. SURGICAL HISTORY: 1. Rectal carcinoma resection as above. OUTPATIENT MEDICATIONS: - Lipitor 40 mg a day - bisoprolol 5 mg a day - Plavix 75 a day - levothyroxine 100 mcg a day She tells me that she ran out of her Plavix approximately a week ago and has been without it for three days. FAMILY HISTORY: Both parents have diabetes. Brother leukemia. SOCIAL HISTORY: Patient is . She has two children. She never smoked. She drinks fairly minimal amount of alcohol. 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 REVIEW OF SYSTEMS: No fever, chills, nausea, vomiting, diarrhea. No genitourinary symptoms. No shortness of breath. No palpitations, dizziness, near/syncope. No peripheral edema. The rest of the review of systems is negative. PHYSICAL EXAMINATION: Mrs. Pruitt is a very pleasant middle-aged female. Blood pressure 138/89. Heart rate 60s and 70s. Saturation 97% on room air. She is afebrile. Her jugular venous pulse (JVP) is not up. Lungs are clear. Heart exam reveals regular rhythm. I do not appreciate any gallop, rub or murmur. Abdomen soft. Nontender. No peripheral edema. Peripheral pulses are of good quality. Neurologically, she is intact. Laboratory-horvath, she has normal CBC. Normal basic metabolic panel. Normal two sets of cardiac enzymes that were drawn only 3 hours apart though. Her ECG is negative times two without any ST-T segment abnormalities. Chest x-ray is unremarkable. ASSESSMENT AND PLAN: Mrs. Pruitt is a 46-year-old female who has established coronary artery disease with plain old balloon angioplasty to PDA in June 2016 and borderline residual disease in LAD. She presented with very atypical chest discomfort that has been present on and off for probably months, but more intense in the last week and especially in the last two days. She has no evidence for ischemia on ECG and her cardiac enzymes have been negative. I would recommend to obtain one more set of cardiac enzymes in order to have at least two studies eight hours apart. Provided they are negative, I believe she can be discharged home. I talked to Dr. Patricio and will give her Plavix when she is in the hospital because I do not want her to be without it. Otherwise, I think her chronic medications can be continued and I will bring her for yet another stress test in the near future. I discussed the plan with the patient and her who are both in agreement.
[2017-02-13 09:57] VITALS: BP 140/93
[2017-02-13 12:16] VITALS: BP 142/82
--- NOTE | 2017-02-13 18:07 | ECGEPIP ---
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
== END 2017-02-13 12:22 | disposition home or self-care (01) ==
LOC: M ED 03:07
DX: R07.89 Other chest pain (principal); R06.02 Shortness of breath; I25.9 Chronic ischemic heart disease, unspecified; E03.9 Hypothyroidism, unspecified; Z85.038 Personal history of other malignant neoplasm of large intestine; Z79.899 Other long term (current) drug therapy; Z79.01 Long term (current) use of anticoagulants; Z88.0 Allergy status to penicillin; Z88.1 Allergy status to other antibiotic agents; Z88.2 Allergy status to sulfonamides; Z88.8 Allergy status to other drugs, medicaments and biological substances; Z91.018 Allergy to other foods
CPT/HCPCS: 36415; 71020; 80048; 82550; 82553; 85025; 85379; 93005; 93041; 94760; 96374; 96375; 99285; J2405

== ENCOUNTER → 2017-04-07 | Outpatient (REF) | payer BC ==
[2017-04-07 20:39] LABS: CARCINOEMBRYONIC ANTIGEN 1.5 NG/ML (<2.5)
== END ==
LOC: M LAB REF 19:41
DX: C20 Malignant neoplasm of rectum (principal)
CPT/HCPCS: 82378

== ENCOUNTER → 2017-05-04 | Outpatient (REF) | payer BC | LOC: M SFHCLERA 11:54 | DX: D48.5 Neoplasm of uncertain behavior of skin (principal) | CPT/HCPCS: 88305 ==

== ENCOUNTER 2017-06-23 06:49 | Day surgery (SDC) | payer BC ==
[2017-06-23] MEDS ORDERED: PROPOFOL 200 MG/20 ML VIAL As Ordered ×2 (06:55)
[2017-06-23] MEDS ORDERED: LIDOCAINE 2% INJ 100 MG/5 ML SDV (FOR ANES.) As Ordered (06:56)
[2017-06-23] MEDS: LR 1,000 ML IV (07:05)
== END 2017-06-23 08:23 | disposition home or self-care (01) ==
LOC: M OPP 06:49
DX: K64.9 Unspecified hemorrhoids (principal); Z98.0 Intestinal bypass and anastomosis status; Z85.048 Personal history of other malignant neoplasm of rectum, rectosigmoid junction, and anus; K62.5 Hemorrhage of anus and rectum; I10 Essential (primary) hypertension; E03.9 Hypothyroidism, unspecified; D55.0 Anemia due to glucose-6-phosphate dehydrogenase [G6PD] deficiency; J45.909 Unspecified asthma, uncomplicated; Z79.899 Other long term (current) drug therapy; Z88.8 Allergy status to other drugs, medicaments and biological substances; Z91.018 Allergy to other foods; Z78.0 Asymptomatic menopausal state; Z86.79 Personal history of other diseases of the circulatory system
CPT/HCPCS: 45378

== ENCOUNTER → 2017-06-24 | Outpatient (CLI) | payer BC | LOC: M RAD 09:38 | DX: Z12.31 Encounter for screening mammogram for malignant neoplasm of breast (principal) | CPT/HCPCS: 77067 ==

== ENCOUNTER → 2017-08-11 | Outpatient (CLI) | payer BC ==
[2017-08-11 14:32] LABS: THYROID STIMULATING HORMONE 0.687 uIU/ML (0.358-3.740)
[2017-08-11 14:32] LABS: FREE T4 1.43 NG/DL (0.76-1.46)
== END ==
LOC: M SMT 09:41
DX: E03.9 Hypothyroidism, unspecified (principal)

== ENCOUNTER → 2017-08-28 | Outpatient (CLI) | payer BC ==
[2017-08-28 13:29] LABS: BASO # 0.1 10^3/uL (0.0-0.2); BASO % 0.9 % (0.0-1.0); EOS # 0.3 10^3/uL (0.0-0.50); EOS % 5.2 % (0.0-3.0); HEMATOCRIT 38.4 % (36.0-47.0); HEMOGLOBIN 12.6 g/dl (12.0-15.5); IMMATURE GRANULOCYTE % 0.7 % (0-3.0); LYMPH # 1.6 10^3/uL (1.5-4.5); LYMPH % 29.3 % (24.0-44.0); MEAN CORPUSCULAR HEMOGLOBIN 29.6 pg (27.0-33.0); MEAN CORPUSCULAR HGB CONC 32.8 g/dl (32.0-36.5); MEAN CORPUSCULAR VOLUME 90.4 fl (80.0-96.0); MONO # 0.5 10^3/uL (0.0-0.8); MONO % 8.3 % (0.0-5.0); NEUTROPHILS # 3.1 10^3/uL (1.8-7.7); NEUTROPHILS % 55.6 % (36.0-66.0); PLATELET COUNT, AUTOMATED 347 10^3/uL (150-450); RED BLOOD COUNT 4.25 10^6/uL (4.00-5.40); RED CELL DISTRIBUTION WIDTH 11.9 % (11.5-14.5); WHITE BLOOD COUNT 5.5 10^3/uL (4.0-10.0)
[2017-08-28 13:43] LABS: ALBUMIN 3.9 GM/DL (3.2-5.2); ALBUMIN/GLOBULIN RATIO 1.08 (1.00-1.93); ALKALINE PHOSPHATASE 101 U/L (45-117); ALT/SGPT 55 U/L (12-78); ANION GAP 10 MEQ/L (8-16); AST/SGOT 43 U/L (7-37); BILIRUBIN,TOTAL 1.5 MG/DL (0.2-1.0); BLOOD UREA NITROGEN 11 MG/DL (7-18); CALCIUM LEVEL 8.7 MG/DL (8.5-10.1); CARBON DIOXIDE LEVEL 25 MEQ/L (21-32); CHLORIDE LEVEL 107 MEQ/L (98-107); CHOLESTEROL LEVEL 124 MG/DL (<200); CHOLESTEROL RISK RATIO 1.878 (<5); CREATININE FOR GFR 0.88 MG/DL (0.55-1.30); GLOMERULAR FILTRATION RATE > 60.0 (>58); GLUCOSE, FASTING 172 MG/DL (70-100); HDL CHOLESTEROL 66 MG/DL (>40); LDL CHOLESTEROL 30.6 MG/DL (<100); NON-HDL-C 58 MG/DL; POTASSIUM SERUM 4.3 MEQ/L (3.5-5.1); SODIUM LEVEL 142 MEQ/L (136-145); TOTAL PROTEIN 7.5 GM/DL (6.4-8.2); TRIGLYCERIDES LEVEL 137 MG/DL (<150)
[2017-08-28 13:48] LABS: TOTAL 25(OH) VITAMIN D 14.8 NG/ML (30.0-100.0)
== END ==
LOC: M SMT 09:03
DX: E55.9 Vitamin D deficiency, unspecified (principal); I25.10 Atherosclerotic heart disease of native coronary artery without angina pectoris
CPT/HCPCS: 80053

== ENCOUNTER → 2018-03-24 | Outpatient (REF) | payer BC ==
[~2018-03-24] MED LIST changes: -AMLO5TAB2 PO; +AMLO5TAB6 PO; +VENTAER IN; -VITA1CAP40; -VITA1CAP40 PO; +VITA50005; +VITA50005 PO
[2018-03-26 14:42] LABS: HPV HYBRID CAPTURE II Negative (Negative)
== END ==
LOC: M LAB REF 18:12
PROVIDERS: ATTEND Family Medicine
DX: Z12.4 Encounter for screening for malignant neoplasm of cervix (principal)

== ENCOUNTER → 2018-08-09 | Outpatient (CLI) | payer BC ==
[~2018-08-09] MED LIST changes: -BISO10TA PO; +BISO10TA13 PO; +NORC1TAB8 PO; -NORC7.5T35 PO
[2018-08-09 17:25] LABS: FREE T4 1.28 NG/DL (0.76-1.46); THYROID STIMULATING HORMONE 0.737 uIU/ML (0.358-3.740)
== END ==
LOC: M LAB 16:07
PROVIDERS: ATTEND Internal Medicine Endocrinology, Diabetes & Metabolism
DX: E03.9 Hypothyroidism, unspecified (principal)

== ENCOUNTER → 2018-12-17 | Outpatient (CLI) | payer BC ==
[~2018-12-17] MED LIST changes: +GASTROGRAFIN SOLUTION 30ML (Q9963) As Ordered ONE; +ISOVUE-370 76% 100ML VIAL (Q9967) As Ordered ONE
--- NOTE | 2018-12-17 17:59 | REPMRS ---
Patient History The patient states she has not had a clinical breast exam in over a year. Family history of unknown cancer at age 2 in brother. Digital Mammo Screening Bilat: December 17, 2018 - Exam #: [id number] Bilateral CC and MLO view(s) were taken. Technologist: Petra Erickson, Technologist Prior study comparison: June 24, 2017, bilateral digital mammo screening bilat performed at [facility]. FINDINGS: The breast tissue is heterogeneously dense. This may lower the sensitivity of mammography. There is a moderate amount of heterogeneously dense fibroglandular tissue which is fairly symmetric. There is no interval development of dominant mass, architectural distortion, or grouped microcalcification typical of malignancy. There has been no change in the appearance of the mammogram from the prior studies. 3-D tomosynthesis shows no additional findings. Assessment: BI-RADS/ACR category 1 mammogram. Negative Mammogram. Recommendation Routine screening mammogram of both breasts in 1 year (for women over age 40). This patient's Lifetime Breast Cancer RIsk is estimated at 11.5 %. This mammogram was interpreted with the aid of an FDA-approved computer-aided dectection system. Electronically Signed By: Can Augustine MD 12/17/18 1854
--- NOTE | 2018-12-17 18:13 | REP ---
CT abdomen and pelvis with IV and oral contrast: History: Surveillance exam, history of rectal carcinoma stage III. No available comparison CT study. CT contrast dose: 100 ml of intravenous Isovue CT findings: Preliminary digital binder cutter radiograph demonstrates an unremarkable bowel gas pattern. There is moderate diffuse fatty infiltration of the liver. Left hemidiaphragm is somewhat elevated. Spleen is unremarkable. No pancreatic abnormality is noted. There is cholelithiasis with multiple calcific gallstones in the gallbladder. No biliary ductal dilation is observed. No focal liver lesion is seen. No adrenal lesion is observed. Kidneys enhance symmetrically. There is a large intrarenal calculus in the lower pole of the right kidney which measures 1.1 cm in greatest diameter. No hydronephrosis is seen. No renal mass lesion is observed. No retroperitoneal mass or adenopathy is seen. Small and large intestinal bowel loops are normal in the upper abdomen. Pelvic CT images demonstrate a normal appendix coursing posteriorly along the pelvic sidewall. Uterus is tipped somewhat to the left. There is a low anterior rectal anastomosis. No colonic mass lesion is observed. No pelvic adenopathy is seen. No uterine abnormality is observed. Bone window settings show no bony destructive lesion. Impression: 1. 1.1 cm intrarenal calculus lower pole right kidney without hydronephrosis. 2. Cholelithiasis. 3. Moderate fatty infiltration of the liver. 4. Status post low anterior resection and reanastomosis. No evidence of intra-abdominal metastasis or adenopathy. Electronically Signed by Devin Augustine MD 12/17/2018 07:52 P
--- NOTE | 2018-12-17 18:15 | REP ---
CT chest with IV contrast: History: Surveillance imaging. History of rectal carcinoma. Stage III. CT contrast dose: 100 ml of intravenous Isovue 370. Comparison chest CT study July 08, 2016. CT findings: There is a 7 mm low density lesion in the left lobe of the thyroid likely a cyst. No mediastinal mass or adenopathy is observed. No pleural or pericardial effusion is seen. There is good opacification of the pulmonary arterial tree and the thoracic aorta. No filling defect is seen. No evidence of aortic aneurysm or dissection. No adrenal lesion is observed. Bone window settings show no bony destructive lesion. Left hemidiaphragm remains somewhat elevated. There is minimal plate-like atelectasis or fibrosis above it in the left lower lobe. Lung olivera are otherwise clear. No pulmonary nodule is appreciated. Impression: No evidence of intrathoracic metastatic disease. Elevated left hemidiaphragm again noted unchanged. Electronically Signed by Devin Augustine MD 12/17/2018 07:52 P
== END ==
LOC: M RAD 12:28
PROVIDERS: ATTEND Internal Medicine Hematology & Oncology
DX: C20 Malignant neoplasm of rectum (principal); E04.1 Nontoxic single thyroid nodule; N20.0 Calculus of kidney; K80.00 Calculus of gallbladder with acute cholecystitis without obstruction; K76.0 Fatty (change of) liver, not elsewhere classified; Z90.49 Acquired absence of other specified parts of digestive tract
CPT/HCPCS: 71260; 74177; 77063; 77067; Q9963; Q9967

== ENCOUNTER 2019-02-15 06:41 | Emergency (ER) | payer BC ==
[~2019-02-15] VITALS: Ht 157.5 cm; Wt 68.2 kg
[~2019-02-15 06:41] MED LIST changes: -GASTROGRAFIN SOLUTION 30ML (Q9963) As Ordered ONE; -ISOVUE-370 76% 100ML VIAL (Q9967) As Ordered ONE
[2019-02-15 07:25] LABS: BASO # 0.1 10^3/uL (0.0-0.2); BASO % 1.1 % (0.0-1.0); EOS # 0.4 10^3/uL (0.0-0.5); HEMATOCRIT 39.2 % (36.0-47.0); HEMOGLOBIN 12.5 g/dl (12.0-15.5); LYMPH # 1.5 10^3/uL (1.5-5.0); LYMPH % 29.1 % (24.0-44.0); MEAN CORPUSCULAR HEMOGLOBIN 28.9 pg (27.0-33.0); MEAN CORPUSCULAR HGB CONC 31.9 g/dl (32.0-36.5); MEAN CORPUSCULAR VOLUME 90.7 fl (80.0-96.0); MONO # 0.6 10^3/uL (0.0-0.8); MONO % 10.5 % (0.0-5.0); NEUTROPHILS # 2.6 10^3/uL (1.5-8.5); NEUTROPHILS % 50.5 % (36.0-66.0); PLATELET COUNT, AUTOMATED 316 10^3/uL (150-450); RED BLOOD COUNT 4.32 10^6/uL (4.00-5.40); WHITE BLOOD COUNT 5.2 10^3/uL (4.0-10.0)
[2019-02-15 07:34] LABS: INR 0.96; PROTHROMBIN TIME 12.5 SECONDS (11.8-14.0)
[2019-02-15 07:52] LABS: BLOOD UREA NITROGEN 10 MG/DL (7-18); CALCIUM LEVEL 9.1 MG/DL (8.5-10.1); CARBON DIOXIDE LEVEL 27 MEQ/L (21-32); CHLORIDE LEVEL 106 MEQ/L (98-107); CK-MB VALUE MASS < 1.0 NG/ML (<3.6); CPK CREATINE PHOSPHOKINASE 110 U/L (26-192); CREATININE FOR GFR 0.96 MG/DL (0.55-1.30); GLOMERULAR FILTRATION RATE > 60.0 (>58); GLUCOSE, FASTING 262 MG/DL (70-100); MB/CK RELATIVE INDEX 0.91 (< OR =4); POTASSIUM SERUM 3.8 MEQ/L (3.5-5.1); SODIUM LEVEL 142 MEQ/L (136-145); TROPONIN I < 0.02 NG/ML (< 0.10)
--- NOTE | 2019-02-15 08:13 | REP ---
Portable chest x-ray: Single view. History: Chest pain. Comparison study: February 13, 2017. Findings: EKG monitoring electrodes overlie the chest. Heart is not enlarged. Aorta is tortuous. Pulmonary vasculature is not increased. No significant bony abnormality. Impression: No acute disease. Electronically Signed by Devni Augustine MD 02/15/2019 08:04 A
[2019-02-15 08:43] LABS: D-DIMER QUANT 411.24 ng/ml (<500)
[2019-02-15] MEDS ORDERED: NITROGLYCERIN 0.4 MG SUBL TABLET SL PRN (09:00)
[2019-02-15 09:26] VITALS: BP 143/93
[2019-02-15] MEDS ORDERED: ISOVUE-370 76% 100ML VIAL (Q9967) As Ordered ONE (13:37)
[2019-02-15 14:20] LABS: CK-MB VALUE MASS < 1.0 NG/ML (<3.6); CPK CREATINE PHOSPHOKINASE 116 U/L (26-192); MB/CK RELATIVE INDEX 0.86 (< OR =4); TROPONIN I < 0.02 NG/ML (< 0.10)
--- NOTE | 2019-02-15 14:27 | REP ---
CT ANGIOGRAM CHEST: TECHNIQUE: Axial contrast enhanced images from the thoracic inlet to the upper abdomen using 100 mL Isovue 370 intravenous contrast material with multiplanar reformations. There is on CT evidence of pulmonary embolism. There is no thoracic aortic aneurysm or dissection. Heart is slightly enlarged. There is no pleural or pericardial effusion. There is no mediastinal, hilar, or chest wall lymphadenopathy. There is diffuse fatty infiltration of the liver. Multiple gallstones are seen in the gallbladder. There is mild patchy bibasilar atelectasis/infiltrate posteriorly. IMPRESSION: No CT evidence of pulmonary embolism or aortic dissection. Mild patchy bilateral lower lobe atelectasis/infiltrate posteriorly. Gallstones in the gallbladder. Fatty infiltration of the liver. Electronically Signed by Nixon Verma MD 02/16/2019 07:06 P
[2019-02-15 15:42] VITALS: BP 129/75
--- NOTE | 2019-02-16 07:58 | ECGEPIP ---
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
--- NOTE | 2019-02-16 08:04 | ECGEPIP ---
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
== END 2019-02-15 15:45 | disposition home or self-care (01) ==
LOC: M ED 06:41
DX: R07.9 Chest pain, unspecified (principal); I10 Essential (primary) hypertension; E06.3 Autoimmune thyroiditis; Z79.899 Other long term (current) drug therapy; Z79.890 Hormone replacement therapy; Z79.01 Long term (current) use of anticoagulants; Z88.0 Allergy status to penicillin; Z88.1 Allergy status to other antibiotic agents; Z88.2 Allergy status to sulfonamides; Z88.8 Allergy status to other drugs, medicaments and biological substances; Z91.018 Allergy to other foods
CPT/HCPCS: 36415; 71045; 71275; 80048; 82550; 82553; 84484; 85025; 85379; 85610; 93005; 93041; 94760; 99285; Q9967

== ENCOUNTER → 2019-03-21 | Outpatient (CLI) | payer BC ==
[2019-03-21 13:05] LABS: BASO # 0.1 10^3/uL (0.0-0.2); BASO % 1.4 % (0.0-1.0); EOS # 0.3 10^3/uL (0.0-0.5); EOS % 6.1 % (0.0-3.0); HEMATOCRIT 43.2 % (36.0-47.0); HEMOGLOBIN 13.7 g/dl (12.0-15.5); LYMPH # 1.8 10^3/uL (1.5-5.0); LYMPH % 33.1 % (24.0-44.0); MEAN CORPUSCULAR HEMOGLOBIN 29.1 pg (27.0-33.0); MEAN CORPUSCULAR HGB CONC 31.7 g/dl (32.0-36.5); MEAN CORPUSCULAR VOLUME 91.9 fl (80.0-96.0); MONO # 0.5 10^3/uL (0.0-0.8); MONO % 8.1 % (0.0-5.0); NEUTROPHILS # 2.8 10^3/uL (1.5-8.5); NEUTROPHILS % 50.9 % (36.0-66.0); PLATELET COUNT, AUTOMATED 333 10^3/uL (150-450); WHITE BLOOD COUNT 5.6 10^3/uL (4.0-10.0)
[2019-03-21 13:37] LABS: ALT/SGPT 36 U/L (12-78); BILIRUBIN,TOTAL 2.2 MG/DL (0.2-1.0); BLOOD UREA NITROGEN 6 MG/DL (7-18); CALCIUM LEVEL 9.1 MG/DL (8.5-10.1); CARBON DIOXIDE LEVEL 28 MEQ/L (21-32); CHLORIDE LEVEL 105 MEQ/L (98-107); CHOLESTEROL LEVEL 134 MG/DL (<200); CHOLESTEROL RISK RATIO 2.161 (<5); CREATININE FOR GFR 0.87 MG/DL (0.55-1.30); FERRITIN 207 NG/ML (8-252); FREE T4 1.36 NG/DL (0.76-1.46); GLOMERULAR FILTRATION RATE > 60.0 (>58); GLUCOSE, FASTING 192 MG/DL (70-100); HDL CHOLESTEROL 62 MG/DL (>40); IRON (FE) 87 UG/DL (50-170); LDL CHOLESTEROL 41 MG/DL (<100); NON-HDL-C 72 MG/DL; PERCENT SATURATION 21.9 % (13.2-45.0); SODIUM LEVEL 140 MEQ/L (136-145); TOTAL 25(OH) VITAMIN D 18.6 NG/ML (30.0-100.0); TOTAL IRON BINDING CAPACITY 397 UG/DL (250-450); TOTAL PROTEIN 7.6 GM/DL (6.4-8.2); TRIGLYCERIDES LEVEL 153 MG/DL (<150)
[2019-03-21 15:49] LABS: HEMOGLOBIN A1c 8.6 %
== END ==
LOC: M PLALAB 11:27
PROVIDERS: ATTEND Family Medicine
DX: Z13.220 Encounter for screening for lipoid disorders (principal); E55.9 Vitamin D deficiency, unspecified; Z13.0 Encounter for screening for diseases of the blood and blood-forming organs and certain disorders involving the immune mechanism

== ENCOUNTER → 2019-06-29 | Outpatient (CLI) | payer BC ==
[2019-06-29 14:43] LABS: ALBUMIN 4.2 GM/DL (3.2-5.2); ALT/SGPT 41 U/L (12-78); BLOOD UREA NITROGEN 15 MG/DL (7-18); CALCIUM LEVEL 9.3 MG/DL (8.5-10.1); CARBON DIOXIDE LEVEL 27 MEQ/L (21-32); CHLORIDE LEVEL 105 MEQ/L (98-107); CREATININE FOR GFR 0.94 MG/DL (0.55-1.30); GLOMERULAR FILTRATION RATE > 60.0 (>58); GLUCOSE, FASTING 110 MG/DL (70-100); POTASSIUM SERUM 4.1 MEQ/L (3.5-5.1); SODIUM LEVEL 139 MEQ/L (136-145); TOTAL PROTEIN 7.9 GM/DL (6.4-8.2)
[2019-06-29 17:27] LABS: HEMOGLOBIN A1c 6.2 %
== END ==
LOC: M PLALAB 11:30
PROVIDERS: ATTEND Family Medicine
DX: E11.65 Type 2 diabetes mellitus with hyperglycemia (principal)

== ENCOUNTER → 2019-08-02 | Outpatient (CLI) | payer BC ==
[2019-08-02 19:00] LABS: FREE T4 1.57 NG/DL (0.76-1.46); THYROID STIMULATING HORMONE 0.651 uIU/ML (0.358-3.740)
== END ==
LOC: M PLALAB 15:34
PROVIDERS: ATTEND Internal Medicine Endocrinology, Diabetes & Metabolism
DX: E03.9 Hypothyroidism, unspecified (principal)

== ENCOUNTER → 2019-12-17 | Outpatient (CLI) | payer BC ==
[~2019-12-17] MED LIST changes: +AMLO1TAB24 PO; -AMLO5TAB6 PO
== END ==
LOC: M LABSMTC 08:15
PROVIDERS: ATTEND Anesthesiology
DX: Z01.812 Encounter for preprocedural laboratory examination (principal); Z20.828 Contact with and (suspected) exposure to other viral communicable diseases
CPT/HCPCS: C9803; U0003

== ENCOUNTER 2019-12-22 06:55 | Day surgery (SDC) | payer BC ==
[~2019-12-22] VITALS: Ht 157.5 cm; Wt 66.2 kg
[2019-12-22] MEDS ORDERED: NS 1,000 ML IV ONE (07:00)
[2019-12-22] MEDS ORDERED: LIDOCAINE 2% 100MG/5ML SDV (FOR ANES.) As Ordered ONE (07:34)
[2019-12-22] MEDS ORDERED: propofoL 200 MG/20 ML VIAL As Ordered ONE (07:34)
--- NOTE | 2019-12-22 08:12 | ROOR ---
Patient Name: Mando Pruitt Procedure Date: 12/22/2019 7:29 AM Date of : 1970 Age: 49 Room: [facility] Gender: Female Note Status: Finalized Procedure: Colonoscopy Indications: High risk colon cancer surveillance: Personal history of rectal cancer, Last colonoscopy: May 2017, Pt had low anterior resection 09/2014 Providers: Ian Ramos MD Referring MD: Nikole CAMPBELL DO Requesting Provider: Medicines: Monitored Anesthesia Care Complications: No immediate complications. Procedure: Pre-Anesthesia Assessment: - Prior to the procedure, a History and Physical was performed, and patient medications and allergies were reviewed. The patient is competent. The risks and benefits of the procedure and the sedation options and risks were discussed with the patient. All questions were answered and informed consent was obtained. Patient identification and proposed procedure were verified by the physician, the nurse and the farm mortgage agent in the procedure room. Mental Status Examination: alert and oriented. Airway Examination: normal oropharyngeal airway and neck mobility. CV Examination: regular rate and rhythm. Prophylactic Antibiotics: The patient does not require prophylactic antibiotics. Prior Anticoagulants: The patient has taken no previous anticoagulant or antiplatelet agents. ASA Grade Assessment: III - A patient with severe systemic disease. After reviewing the risks and benefits, the patient was deemed in satisfactory condition to undergo the procedure. The anesthesia plan was to use monitored anesthesia care (MAC). Immediately prior to administration of medications, the patient was re-assessed for adequacy to receive sedatives. The heart rate, respiratory rate, oxygen saturations, blood pressure, adequacy of pulmonary ventilation, and response to care were monitored throughout the procedure. The physical status of the patient was re-assessed after the procedure. The Colonoscope was introduced through the anus and advanced to the cecum, identified by appendiceal orifice and ileocecal valve. The colonoscopy was performed without difficulty. The patient tolerated the procedure well. The quality of the bowel preparation was excellent. Findings: The digital rectal exam findings include palpable anastomosis at the tip of the finger. The colon (entire examined portion) appeared normal. There was evidence of a prior end-to-end colo-rectal anastomosis from 6 to 7 cm proximal to the anus. This was patent and was characterized by healthy appearing mucosa. The anastomosis was traversed. Impression: - Palpable anastomosis at the tip of the finger. found on digital rectal exam. - The entire examined colon is normal. - Patent end-to-end colo-rectal anastomosis, characterized by healthy appearing mucosa. - No specimens collected. Recommendation: - Discharge patient to home. - Resume previous diet. - Continue present medications. - Repeat colonoscopy in 3 years for surveillance. Ian Ramos MD Ian Ramos MD 12/22/2019 8:11:53 AM Electronically signed by Ian Ramos MD Number of Addenda: 0 Note Initiated On: 12/22/2019 7:29 AM Estimated Blood Loss: Estimated blood loss: none.
[2019-12-22 08:22] VITALS: BP 110/68
== END 2019-12-22 08:47 | disposition home or self-care (01) ==
LOC: M OPP 06:55
PROVIDERS: ATTEND Surgery
DX: Z12.11 Encounter for screening for malignant neoplasm of colon (principal); Z85.048 Personal history of other malignant neoplasm of rectum, rectosigmoid junction, and anus; Z98.0 Intestinal bypass and anastomosis status

== ENCOUNTER → 2020-02-29 | Outpatient (CLI) | payer BC ==
[~2020-02-29] MED LIST changes: +GASTROGRAFIN SOLUTION 30ML (Q9963) As Ordered ONE; +ISOVUE-370 76% 100ML VIAL As Ordered ONE
--- NOTE | 2020-02-29 11:24 | REP ---
INDICATION: COLON CA COMPARISON: 02/15/2019, 12/17/2018 TECHNIQUE: Axial contrast enhanced images from the thoracic inlet to the upper abdomen with coronal and sagittal reformations using 100 ml Isovue 370 intravenous contrast material. [address] CT examination was performed using the following dose reduction techniques: Automated exposure control, adjustment of mA and/or kv according to the patient's size, and use of iterative reconstruction technique. FINDINGS: The bilateral lung olivera are well aerated and relatively clear. Mild chronic elevation to the left hemidiaphragm with associated minimal left basilar scarring again noted. No consolidation, suspicious nodule or mass lesion. No effusion. No pneumothorax. Tracheobronchial tree is patent. No axillary, hilar, or mediastinal adenopathy. Thoracic aorta, pulmonary vasculature, and heart/pericardium are normal. Surrounding musculoskeletal structures are intact. IMPRESSION: 1. Stable normal examination. 2. No evidence for acute mediastinal or pleuroparenchymal process. 3. No evidence for metastatic disease. <Electronically signed by Neftaly Spence > 02/29/20 [id number]
--- NOTE | 2020-02-29 11:33 | REP ---
INDICATION: COLON CA. COMPARISON: 12/17/2018 TECHNIQUE: Axial contrast-enhanced images from the lung bases to the pubic symphysis using 100 cc Isovue 370 intravenous contrast material. Delayed images of the abdomen along with coronal and sagittal reformations obtained. This CT examination was performed using the following dose reduction techniques: Automated exposure control, adjustment of mA and/or kv according to the patient's size, and the use of iterative reconstruction technique. FINDINGS: Spleen, pancreas, bilateral adrenal glands and left kidney are normal. Mild hepatosteatosis noted. Cholelithiasis again noted without evidence for acute cholecystitis. Small simple bilateral renal cysts and 12 mm nonobstructing right renal calculus again noted and unchanged. The enteric system including stomach, small, and large bowel appears relatively normal. Evidence for prior resection and anastomosis at the rectosigmoid level appears essentially normal. No evidence for local recurrence or obvious metastatic disease. No evidence for obstruction or acute inflammatory process. Normal terminal ileum and appendix are identified in the right lower quadrant. Pelvis demonstrates normal bladder and age-appropriate uterus/adnexa. No ascites. No free air. No intraperitoneal or retroperitoneal adenopathy. Abdominal aorta and vasculature appear normal. Musculoskeletal structures are intact and without acute osseous abnormality. IMPRESSION: 1. No acute abdominopelvic pathology appreciated. 2. No evidence for recurrence or metastatic disease. 3. Nonacute findings include hepatosteatosis, nonobstructing right renal calculus, cholelithiasis, and small simple bilateral renal cysts. <Electronically signed by Neftaly Spence > 02/29/20 1123
== END ==
LOC: M RAD 09:05
PROVIDERS: ATTEND Specialist
DX: C18.9 Malignant neoplasm of colon, unspecified (principal)
CPT/HCPCS: 71260; 74177; Q9963; Q9967

== ENCOUNTER 2020-03-07 07:17 | Emergency (ER) | payer BC ==
[~2020-03-07] VITALS: Ht 157.5 cm; Wt 71.5 kg
[2020-03-07 07:17] VITALS: BP 137/60
[~2020-03-07 07:17] MED LIST changes: -GASTROGRAFIN SOLUTION 30ML (Q9963) As Ordered ONE; -ISOVUE-370 76% 100ML VIAL As Ordered ONE
[2020-03-07] MEDS ORDERED: FLUORESCEIN OPHTH 1 MG STRIP OD ONE (08:45)
[2020-03-07] MEDS ORDERED: TETRACAINE 0.5% OPHTH SOLN 4ML OD ONE (08:45)
[2020-03-08] MEDS ORDERED: ALIVTAB PO (15:34)
== END 2020-03-07 11:19 | disposition home or self-care (01) ==
LOC: M ED 07:17
DX: H57.9 Unspecified disorder of eye and adnexa (principal); Z77.098 Contact with and (suspected) exposure to other hazardous, chiefly nonmedicinal, chemicals; E11.9 Type 2 diabetes mellitus without complications; I10 Essential (primary) hypertension; J45.909 Unspecified asthma, uncomplicated; G62.9 Polyneuropathy, unspecified; E03.9 Hypothyroidism, unspecified; D55.0 Anemia due to glucose-6-phosphate dehydrogenase [G6PD] deficiency; Z79.899 Other long term (current) drug therapy; Z79.890 Hormone replacement therapy; Z79.01 Long term (current) use of anticoagulants; Z88.0 Allergy status to penicillin; Z88.1 Allergy status to other antibiotic agents; Z88.2 Allergy status to sulfonamides; Z88.8 Allergy status to other drugs, medicaments and biological substances; Z91.010 Allergy to peanuts; Z91.018 Allergy to other foods

== ENCOUNTER → 2020-04-26 | Outpatient (CLI) | payer SELFPAY ==
[~2020-04-26] MED LIST changes: +ALIVTAB PO
== END ==
LOC: M LABSMTC 12:54
PROVIDERS: ATTEND Pediatrics
DX: Z11.52 Encounter for screening for COVID-19 (principal)

== ENCOUNTER → 2021-08-07 | Outpatient (CLI) | payer BC ==
[2021-08-07 17:37] LABS: BASO # 0.1 10^3/uL (0.0-0.2); BASO % 1.1 % (0.0-1.0); EOS # 0.4 10^3/uL (0.0-0.5); EOS % 5.9 % (0.0-3.0); HEMATOCRIT 42.2 % (36.0-47.0); HEMOGLOBIN 13.3 g/dl (12.0-15.5); LYMPH # 2.1 10^3/uL (1.5-5.0); LYMPH % 29.8 % (24.0-44.0); MEAN CORPUSCULAR HEMOGLOBIN 29.8 pg (27.0-33.0); MEAN CORPUSCULAR HGB CONC 31.5 g/dl (32.0-36.5); MEAN CORPUSCULAR VOLUME 94.4 fl (80.0-96.0); MONO # 0.5 10^3/uL (0.0-0.8); MONO % 7.6 % (2.0-8.0); NEUTROPHILS % 55.3 % (36.0-66.0); PLATELET COUNT, AUTOMATED 354 10^3/uL (150-450); RED BLOOD COUNT 4.47 10^6/uL (4.00-5.40); WHITE BLOOD COUNT 7.1 10^3/uL (4.0-10.0)
[2021-08-07 18:18] LABS: ALBUMIN 4.2 GM/DL (3.2-5.2); BILIRUBIN,TOTAL 2.4 MG/DL (0.2-1.0); CALCIUM LEVEL 9.2 MG/DL (8.5-10.1); CHOLESTEROL RISK RATIO 2.171 (<5); CREATININE FOR GFR 1.05 MG/DL (0.55-1.30); FREE T4 1.4 NG/DL (0.76-1.46); GLOMERULAR FILTRATION RATE 59.3 (>58); POTASSIUM SERUM 3.9 MEQ/L (3.5-5.1); THYROID STIMULATING HORMONE 1.8 uIU/ML (0.358-3.740); TOTAL PROTEIN 8.2 GM/DL (6.4-8.2)
[2021-08-07 18:28] LABS: TOTAL 25(OH) VITAMIN D 24.7 NG/ML (30.0-100.0)
[2021-08-09 12:13] LABS: BILIRUBIN,DIRECT 0.5 MG/DL (0.0-0.2)
== END ==
LOC: M LAB 16:51
PROVIDERS: ATTEND Nurse Practitioner Adult Health
DX: E11.9 Type 2 diabetes mellitus without complications (principal); E06.3 Autoimmune thyroiditis; E55.9 Vitamin D deficiency, unspecified